=== PATIENT | female | born 1995 | race Caucasian/White ===

== ENCOUNTER 2016-10-18 19:34 | Emergency (ER) | payer OTHER ==
[2016-10-18 20:10] VITALS: BP 133/81; PULSE 97; RESP 18; TEMP 97.1
[2016-10-18] MEDS ORDERED: DIPH,PERTUS(ACELL)TETVAC-LF 0.5 ML VIAL IM ONE (20:26)
--- NOTE | 2016-10-18 20:26 | ED ---
Skin/Abscess/FB HPI - General Chief complaint: Skin/Abscess/Foreign Body Stated complaint: knee pain/poss ingrown hair Time Seen by Provider: 10/18/16 20:08 Source: patient Mode of arrival: ambulatory Limitations: no limitations - History of Present Illness Initial comments: Patient is a 21-year-old female presenting to the emergency department with complaints of redness and swelling of right knee increasing in character over the last 4 days. Patient states she thinks she has an ingrown hair. Patient denies chills, fevers, nausea, vomiting, shortness of breath, chest pain, or abdominal pain. Patient states she's recently been treated for bronchitis and recently finished a steroid pack. Patient denies history of MRSA. Patient denies history of same. Patient states she is not up-to-date on tetanus immunization. MD complaint: abscess/boil Onset/Timin -: days(s) Tetanus Up to Date: no Location: LLE (Left knee) Severity: moderate Severity scale (1-10): 8 Quality: aching Consistency: constant Improves with: medication Worsens with: palpation, movement Associated symptoms: denies other symptoms Treatments Prior to Arrival: attempted to drain pus at home, OTC topical medication, NSAID - Related Data Home Medications Medication Instructions Recorded Confirmed Butalb/Acetaminophen/Caffeine 1 - 2 cap PO Q4HR 10/18/16 10/18/16 [Fioricet 50-300-40 mg Capsule] Cyclobenzaprine [Flexeril] 10 mg PO TID 10/18/16 10/18/16 Desvenlafaxine Succinate [Pristiq] 50 mg PO DAILY 10/18/16 10/18/16 Diclofenac Sodium 50 mg PO BID 10/18/16 10/18/16 Gabapentin [Neurontin] 300 mg PO TID 10/18/16 10/18/16 Previous Rx's Medication Instructions Recorded Acetaminophen-Codeine 300-30mg 1 tab PO Q4H PRN #12 tablet 10/18/16 [Tylenol #3] Sulfamethox-Tmp 800-160Mg [Bactrim 1 tab PO Q12HR #20 tab 10/18/16 DS 800-160 mg] Allergies Allergy/AdvReac Type Severity Reaction Status Date / Time No Known Allergies Allergy Verified 10/18/16 20:10 Review of Systems ROS Statement: Those systems with pertinent positive or pertinent negative responses have been documented in the HPI. ROS Other: All systems not noted in ROS Statement are negative. Past Medical History Additional Past Medical History / Comment(s): Possible RA History of Any Multi-Drug Resistant Organisms: None Reported Past Surgical History: No Surgical Hx Reported Past Psychological History: Bipolar, Depression Smoking Status: Current every day smoker Past Alcohol Use History: Occasional Past Drug Use History: Marijuana General Exam - General Exam Comments Initial Comments: GENERAL: Pt awake and alert, well-appearing, well-nourished, and in no acute distress. HEAD: Atraumatic, normocephalic. EYES: Pupils equal, round, and reactive to light, extraocular movements intact, sclera anicteric, conjunctiva are normal. ENT: Moist mucous membranes. NECK:Supple without lymphadenopathy or JVD. LUNGS: Breath sounds clear to auscultation bilaterally. No wheezes, rales, or rhonchi. HEART: Heart S1, S2, no S3 or S4. Regular rate and rhythm. No murmurs, rubs or gallops. ABDOMEN: Soft, nontender, nondistended, normoactive bowel sounds. EXTREMITIES: 2+ peripheral pulses. No edema. No calf tenderness. Full range of motion. NEUROLOGICAL: Pt oriented x 3. Cranial nerves II through XII grossly intact. Strength and sensation grossly intact. PSYCH: Normal mood, normal affect. SKIN: Right knee cellulitis without evidence of abscess. Limitations: no limitations Course Vital Signs 10/18/16 20:08 Temperature 97.1 F L Pulse Rate 97 Respiratory 18 Rate Blood Pressure 133/81 O2 Sat by Pulse 100 Oximetry Medical Decision Making - Medical Decision Making Cellulitis to right knee without evidence of drainable abscess. Patient placed on oral antibiotics. 2. Instructions reviewed. Patient started to follow-up with family care physician or return to the emergency department with worsening symptoms. Patient agrees to treatment plan. Return parameters and discharge instructions reviewed. Disposition Clinical Impression: Cellulitis of right knee Disposition: HOME SELF-CARE Condition: Good Instructions: Cellulitis (ED) Additional Instructions: Warm moist compresses to the 4-5 times daily, keep knee elevated and rest. Return to the emergency department if symptoms do not improve or get worse next 24 hours. Prescriptions: Acetaminophen-Codeine 300-30mg [Tylenol #3] 1 tab PO Q4H PRN #12 tablet PRN Reason: Pain Sulfamethox-Tmp 800-160Mg [Bactrim DS 800-160 mg] 1 tab PO Q12HR #20 tab Referrals: Alexa Cabrales MD [Primary Care Provider] - 1-2 days Time of Disposition: 20:26
== END 2016-10-18 20:41 | disposition home or self-care (01) ==
LOC: EC 19:34
DX: L03.115 Cellulitis of right lower limb (principal); F17.200 Nicotine dependence, unspecified, uncomplicated; F31.9 Bipolar disorder, unspecified; Z79.899 Other long term (current) drug therapy; Z23 Encounter for immunization
CPT/HCPCS: 90471; 90715; 99282